=== PATIENT | female | born 1945 | race Caucasian/White ===

== ENCOUNTER → 2022-02-27 | Outpatient (CLI) | payer MEDICARE ==
--- NOTE | 2022-03-02 10:08 | MM ---
Reason for exam: screening (asymptomatic). Last mammogram was performed 1 year and 1 month ago. History: Patient is postmenopausal, has history of breast cancer at age 73, and is nulliparous. Family history of breast cancer in 2 sisters at age 50. Lumpectomy of the right breast, 2019. Radiation therapy of the right breast, 2019. Excisional biopsy of the left breast. Physical Findings: A clinical breast exam by your physician is recommended on an annual basis and results should be correlated with mammographic findings. MG 3D Screening Mammo W/Cad Bilateral CC, MLO, and XCCL view(s) were taken. Prior study comparison: January 13, 2021, mammogram, performed at [place]. January 05, 2020, mammogram, performed at [place]. The breast tissue is heterogeneously dense. This may lower the sensitivity of mammography. Stable benign calcifications. Focal asymmetry upper outer right breast is stable. No significant changes when compared with prior studies. ASSESSMENT: Benign, BI-RAD 2 RECOMMENDATION: Routine screening mammogram of both breasts in 1 year.
== END | disposition home or self-care (01) ==
LOC: RADMAMWWP 07:34
PROVIDERS: ATTEND Physician Assistant
DX: Z12.31 Encounter for screening mammogram for malignant neoplasm of breast (principal); Z78.0 Asymptomatic menopausal state; Z85.3 Personal history of malignant neoplasm of breast; Z80.3 Family history of malignant neoplasm of breast; Z92.3 Personal history of irradiation
CPT/HCPCS: 77063; 77067

== ENCOUNTER → 2023-03-08 | Outpatient (CLI) | payer MEDICARE ==
--- NOTE | 2023-03-09 17:33 | MM ---
Reason for Exam: Screening (asymptomatic). Last screening mammogram was performed 12 month(s) ago. Patient History: Menarche at age 13. Patient has no children. Right ovary removed at age 25. Postmenopausal. Breast cancer, age 73. Excisional Biopsy on the Left side. 2019, Lumpectomy on the Right side. 2019, Radiation Therapy on the right side. Sister had breast cancer, age 50. Sister had breast cancer, age 50. Prior Study Comparison: 01/05/2020 Screening Mammogram, [place]. 01/13/2021 Screening Mammogram, [place]. 02/27/2022 Bilateral Screening Mammogram, [facility]. Tissue Density: The breast tissue is heterogeneously dense. This may lower the sensitivity of mammography. Findings: Analyzed By CAD. Postsurgical and posttreatment changes right breast. The density associated with the patient's upper outer quadrant lumpectomy site is decreasing in size now. Unchanged grouped microcalcifications on the left. There is no suspicious group of microcalcifications or new suspicious mass in either breast. Overall Assessment: Benign, BI-RAD 2 Management: Screening Mammogram of both breasts in 1 year. 1. Patient should continue monthly self breast exams. 2. A clinical breast exam by your physician is recommended on an annual basis. 3. This exam should not preclude additional follow-up of suspicious palpable abnormalities. Electronically signed and approved by: Latha Gutierrez M.D. Radiologist
== END | disposition home or self-care (01) ==
LOC: RADMAMWWP 11:27
PROVIDERS: ATTEND Surgery
DX: Z12.31 Encounter for screening mammogram for malignant neoplasm of breast (principal); Z78.0 Asymptomatic menopausal state; Z80.3 Family history of malignant neoplasm of breast
CPT/HCPCS: 77063; 77067

== ENCOUNTER 2024-01-19 10:28 | Day surgery (SDC) | payer MEDICARE ==
[2024-01-17 14:53] VITALS: BMI 37.1
[~2024-01-19 10:28] MED LIST: LACTATED RINGERS 1,000 ML IV SCH; LIDOCAINE 1% (10MG/ML) FOR IV START INTRADERMA PRN; ONDANSETRON 4 MG/2 ML VIAL IVP PRN
[2024-01-19] MEDS: LACTATED RINGERS 1,000 ML IV ONE (10:48)
[2024-01-19 11:03] VITALS: RESP 16; TEMP 97.8
[2024-01-19] MEDS ORDERED: PROPOFOL 10 MG/ML 20 ML VIAL IV ONE (12:00)
--- NOTE | 2024-01-19 12:18 | P.PCN ---
Date of Procedure: 01/19/24 Procedure(s) Performed: BRIEF HISTORY: Patient is a 78-year-old pleasant male scheduled for an elective colonoscopy as a part of evaluation of long-standing history of Crohn's disease diagnosed in 2010 and since then maintained on Pentasa 1 g twice daily and remains in clinical remission PROCEDURE PERFORMED: Colonoscopy. PREOPERATIVE DIAGNOSIS: History of Crohn's colitis diagnosed in 2010. IV sedation per Anesthesia. PROCEDURE: After informed consent was obtained, the patient, was brought into [facility] endoscopy unit. IV sedation was administered by Anesthesia under continuous monitoring. Digital rectal examination was normal. Initially the Olympus CF-160 flexible video colonoscope was then inserted in the rectum, gradually advanced into the cecum without any difficulty. Careful examination was performed as the scope was gradually being withdrawn. Ileocecal valve and the appendiceal orifice were visualized and appeared normal. Prep was excellent. Mucosa of the cecum, ascending colon and transverse colon had patchy areas of erythema consistent with mild colitis. There was once a fissure ulceration noted on the ileocecal valve which was also biopsied. Rest of the mucosa of the descending colon, sigmoid colon, and rectum appeared normal. Retroflexion was performed in the rectum and no lesions were seen. The patient tolerated the procedure well. IMPRESSION: Mild patchy areas of erythema noted in the cecum, ascending colon and transverse colon and one superficial ulceration of ileocecal valve status post multiple biopsies Rest of the colon appeared normal Recommendations: Findings of this examination were discussed with the patient as well as her family. She was advised to follow up with the biopsy results..continue with Pentasa 1 g twice daily. Advised to follow up in the office in 3-4 months.
[2024-01-19 12:47] VITALS: PULSE 60
[2024-01-19 13:21] VITALS: BP 145/74
== END 2024-01-19 13:17 | disposition home or self-care (01) ==
LOC: ORWHC2ENDO 10:28
PROVIDERS: ATTEND Internal Medicine Gastroenterology
DX: K63.3 Ulcer of intestine (principal); I10 Essential (primary) hypertension; J45.909 Unspecified asthma, uncomplicated; Z79.899 Other long term (current) drug therapy; Z98.890 Other specified postprocedural states
CPT/HCPCS: 45380; J2704; 88305

== ENCOUNTER → 2024-03-09 | Outpatient (CLI) | payer MEDICARE ==
--- NOTE | 2024-03-12 20:44 | MM ---
Reason for Exam: Screening (asymptomatic). Last screening mammogram was performed 12 month(s) ago. Patient History: Menarche at age 13. Patient has no children. Right ovary removed at age 25. Postmenopausal. Breast cancer, right, age 73. Excisional Biopsy on the Left side. 2019, Lumpectomy on the Right side. 2019, Radiation Therapy on the right side. Sister had breast cancer, age 50. Sister had breast cancer, age 50. Prior Study Comparison: 01/13/2021 Screening Mammogram, [place]. 02/27/2022 Bilateral Screening Mammogram, [facility]. 03/08/2023 Bilateral MG 3D screening mammo w/cad, [facility]. Tissue Density: There are scattered areas of fibroglandular density. Findings: Analyzed By CAD. Postsurgical and posttreatment change right side. Unchanged grouped calcifications on the left. There is no suspicious group of microcalcifications or new suspicious mass in either breast. Overall Assessment: Benign, BI-RAD 2 Management: Screening Mammogram of both breasts in 1 year. . Patient should continue monthly self-breast exams. A clinical breast exam by your physician is recommended on an annual basis. This exam should not preclude additional follow-up of suspicious palpable abnormalities. Electronically signed and approved by: Latha Gutierrez M.D. Radiologist
== END | disposition home or self-care (01) ==
LOC: RADMAMWWP 07:01
PROVIDERS: ATTEND Surgery
DX: Z12.31 Encounter for screening mammogram for malignant neoplasm of breast (principal); Z78.0 Asymptomatic menopausal state; Z85.3 Personal history of malignant neoplasm of breast; Z80.3 Family history of malignant neoplasm of breast
CPT/HCPCS: 77063; 77067

== ENCOUNTER 2024-05-10 11:33 | Emergency (ER) | payer MEDICARE, OTHER ==
[2024-05-10 11:46] VITALS: RESP 18; TEMP 98
[2024-05-10] MEDS: SODIUM CHLORIDE 0.9% 1,000 ML IV STA (12:11)
--- NOTE | 2024-05-10 12:17 | ED ---
Nausea/Vomiting/Diarrhea HPI - General Chief complaint: Nausea/Vomiting/Diarrhea Stated complaint: Nausea Time Seen by Provider: 05/10/24 11:53 Source: patient, RN notes reviewed Mode of arrival: ambulatory Limitations: no limitations - History of Present Illness Initial comments: 79-year-old female with history of Crohn's presenting with diarrhea x 7 days. States the diarrhea is watery and she has been having about 10 episodes daily. States she had to wake up in the middle of the night 3 times for last night to use the bathroom. Denies blood in the stool or black tarry stools. She admits some nausea but denies vomiting, urinary symptoms, fevers, cough, or abdominal pain. She states she has had intermittent diarrhea occasionally with her Cr ohn's disease but has never had diarrhea last this long. She is able to tolerate orals well. Denies recent travel or suspicious foods. Denies recent antibiotic use. Has not been around livestock. - Related Data Home Medications Medication Instructions Recorded Confirmed Alendronate Sodium [Fosamax] 70 mg PO MO 01/17/24 01/19/24 Calcium Carbonate/Vitamin D3 1 tab PO DAILY 01/17/24 01/19/24 [Calcium 500 mg Chewable Tablet] L.acidoph,Paracasei, B.lactis 1 each PO DAILY 01/17/24 01/19/24 [Probiotic] Mesalamine [Pentasa] 500 mg PO TID 01/17/24 01/19/24 Mv-Mn/Om3/Dha/Epa/Fish/Lut/Josse 1 each PO DAILY 01/17/24 01/19/24 [Ocuvite Adult 50 Plus Softgel] Sertraline HCl [Zoloft] 50 mg PO HS 01/17/24 01/19/24 amLODIPine [Norvasc] 5 mg PO QAM 01/17/24 01/19/24 Previous Rx's Medication Instructions Recorded Azithromycin [Zithromax] 500 mg PO DAILY 5 Days #5 tab 05/10/24 Allergies Allergy/AdvReac Type Severity Reaction Status Date / Time azathioprine [From Imuran] Allergy pancreatiti Verified 05/10/24 11:46 s Review of Systems ROS Statement: Those systems with pertinent positive or pertinent negative responses have been documented in the HPI. ROS Other: All systems not noted in ROS Statement are negative. Past Medical History Past Medical History: Hypertension Additional Past Medical History / Comment(s): Chrohn's,rt breast CA 2022 w/ radiation tx/no chemo History of Any Multi-Drug Resistant Organisms: None Reported Past Surgical History: Tonsillectomy Additional Past Surgical History / Comment(s): colonoscopies,lumpectomy rt breast,rt ovary removy Past Anesthesia/Blood Transfusion Reactions: No Reported Reaction, Family History of Problems w/ Anesthesia Additional Past Anesthesia/Blood Transfusion Reaction / Comment(s): no hx blood transfusion. sister has PONV Smoking Status: Never smoker - Past Family History Mother Family Medical History: Cancer Additional Family Medical History / Comment(s): kidney CA Father Family Medical History: Cancer Additional Family Medical History / Comment(s): colon CA Sister(s) Family Medical History: Cancer Additional Family Medical History / Comment(s): breast CA General Exam Limitations: no limitations General appearance: alert, in no apparent distress Head exam: Present: atraumatic, normocephalic, normal inspection Eye exam: Present: normal appearance, PERRL, EOMI. Absent: scleral icterus, conjunctival injection, periorbital swelling ENT exam: Present: normal exam, mucous membranes moist Neck exam: Present: normal inspection. Absent: tenderness, meningismus, lymphadenopathy Respiratory exam: Present: normal lung sounds bilaterally. Absent: respiratory distress, wheezes, rales, rhonchi, stridor Cardiovascular Exam: Present: regular rate, normal rhythm, normal heart sounds. Absent: systolic murmur, diastolic murmur, rubs, gallop, clicks GI/Abdominal exam: Present: soft, normal bowel sounds. Absent: distended, tenderness, guarding, rebound, rigid Extremities exam: Present: normal inspection, full ROM, normal capillary refill. Absent: tenderness, pedal edema, joint swelling, calf tenderness Back exam: Present: normal inspection. Absent: CVA tenderness (R), CVA tenderness (L) Neurological exam: Present: alert, oriented X3, CN II-XII intact Psychiatric exam: Present: normal affect, normal mood Skin exam: Present: warm, dry, intact, normal color. Absent: rash Course Vital Signs 05/10/24 05/10/24 05/10/24 11:44 13:08 13:59 Temperature 98.0 F 98.0 F Pulse Rate 69 62 65 Respiratory 18 18 18 Rate Blood Pressure 125/77 132/58 123/62 O2 Sat by Pulse 96 95 96 Oximetry Medical Decision Making - Medical Decision Making Was pt. sent in by a medical professional or institution (, [facility], SCROLL SAW OPERATOR, urgent care, hospital, or penitentiary...) When possible be specific @ -[No] Did you speak to anyone other than the patient for history (EMS, parent, family, police, friend...)? What history was obtained from this source @ -[No] Did you review nursing and triage notes (agree or disagree)? Why? @ -[I reviewed and agree with nursing and triage notes] Were old charts reviewed (outside hosp., previous admission, EMS record, old EKG, old radiological studies, urgent care reports/EKG's, penitentiary records)? Report findings @ -[No old charts were reviewed] Differential Diagnosis (chest pain, altered mental status, abdominal pain women, abdominal pain men, vaginal bleeding, weakness, fever, dyspnea, syncope, headache, dizziness, GI bleed, back pain, seizure, CVA, palpatations, mental health, musculoskeletal)? @ -Infectious diarrhea, C. difficile, enterovirus, Giardia, inflammatory bowel disease, diverticulitis EKG interpreted by me (3pts min.). @ -None X-rays interpreted by me (1pt min.). @ -[None done] CT interpreted by me (1pt min.). @ -[None done] U/S interpreted by me (1pt. min.). @ -[None done] What testing was considered but not performed or refused? (CT, X-rays, U/S, labs)? Why? @ -Imaging not performed due to stable vitals, no abdominal tenderness to palpation, no alarm symptoms What meds were considered but not given or refused? Why? @ -[None] Did you discuss the management of the patient with other professionals (professionals i.e. [facility] [place], SCROLL SAW OPERATOR, lab, RT, psych nurse, social media strategist, lead php developer, te acher, staff command and control officer, case briefer)? Give summary @ -[No] Was smoking cessation discussed for >3mins.? @ -[No] Was critical care preformed (if so, how long)? @ -[No] Were there social determinants of health that impacted care today? How? (Homelessness, low income, unemployed, alcoholism, drug addiction, transportation, low edu. Level, literacy, decrease access to med. care, longterm, rehab)? @ -[No] Was there de-escalation of care discussed even if they declined (Discuss DNR or withdrawal of care, Hospice)? DNR status @ -[No] What co-morbidities impacted this encounter? (DM, HTN, Smoking, COPD, CAD, Cancer, CVA, ARF, Chemo, Hep., AIDS, mental health diagnosis, sleep apnea, morbid obesity)? @ -[None] Was patient admitted / discharged? Hospital course, mention meds given and route, prescriptions, significant lab abnormalities, going to OR and other pertinent info. @ -Patient was discharged. Patient was seen and evaluated for diarrhea x 1 week. Patient is in no acute distress, appears nontoxic. Patient is afebrile and nontachycardic. There is no tenderness to palpation of abdomen. No sign of severe dehydration. Patient is tolerating orals well. Denies recent travel, has not been around livestock, low suspicion for food poisoning. Patient was given 1 L of IV fluids. Lab work remarkable for CO2 of 17. BUN 28. White blood cell count is normal at 8.6. Anion gap is normal at 11. Patient has mild metabolic acidosis likely due to diarrhea. Due to patient having diarrhea for 7 days and more than 8 episodes of diarrhea in 24 hours, antibiotics are indicated at this time for likely infectious diarrhea. Discussed diagnosis of infectious diarrhea with patient. Supportive care discussed. Prescribed azithromycin to pharmacy. Advised to follow-up with PCP if diarrhea does not improve after antibiotic course. Strict return/alarm symptoms discussed with patient in detail and she shows understanding and agrees with plan. Case discussed with my attending Dr. Basilio. Patient discharged in stable condition. Undiagnosed new problem with uncertain prognosis? @ -[No] Drug Therapy requiring intensive monitoring for toxicity (Heparin, Nitro, Insulin, Cardizem)? @ -[No] Were any procedures done? @ -[No] Diagnosis/symptom? @ -Infectious diarrhea Acute, or Chronic, or Acute on Chronic? @ -Acute Uncomplicated (without systemic symptoms) or Complicated (systemic symptoms)? @ -Uncomplicated Side effects of treatment? @ -[No] Exacerbation, Progression, or Severe Exacerbation? @ -[No] Poses a threat to life or bodily function? How? (Chest pain, [place], [place], pneumonia, PE, COPD, DKA, ARF, appy, cholecystitis, CVA, Diverticulitis, Homicidal, Suicidal, threat to staff... and all critical care pts) @ -Low likelihood - Lab Data Result diagrams: 05/10/24 12:10 05/10/24 12:10 Lab Results 05/10/24 05/10/24 05/10/24 Range/Units 12:10 12:10 12:10 WBC 8.6 (3.8-10.6) k/uL RBC 4.61 (3.80-5.40) m/uL Hgb 13.1 (11.4-16.0) gm/dL Hct 41.5 (34.0-46.0) % MCV 90.0 (80.0-100.0) fL MCH 28.4 (25.0-35.0) pg MCHC 31.5 (31.0-37.0) g/dL RDW 13.3 (11.5-15.5) % Plt Count 199 (150-450) k/uL MPV 8.4 Neutrophils % 76 % Lymphocytes % 13 % Monocytes % 7 % Eosinophils % 1 % Basophils % 1 % Neutrophils # 6.5 (1.3-7.7) k/uL Lymphocytes # 1.1 (1.0-4.8) k/uL Monocytes # 0.6 (0-1.0) k/uL Eosinophils # 0.1 (0-0.7) k/uL Basophils # 0.0 (0-0.2) k/uL Sodium 139 (137-145) mmol/L Potassium 4.3 (3.5-5.1) mmol/L Chloride 111 H (98-107) mmol/L Carbon Dioxide 17 L (22-30) mmol/L Anion Gap 11 mmol/L BUN 28 H (7-17) mg/dL Creatinine 0.93 (0.52-1.04) mg/dL Est GFR (CKD-EPI)AfAm 68 (>60 ml/min/1.73 sqM) Est GFR (CKD-EPI)NonAf 59 (>60 ml/min/1.73 sqM) Glucose 94 (74-99) mg/dL Plasma Lactic Acid Jose 0.9 (0.7-2.0) mmol/L Calcium 9.2 (8.4-10.2) mg/dL Total Bilirubin 0.6 (0.2-1.3) mg/dL AST 25 (14-36) U/L ALT 17 (4-34) U/L Alkaline Phosphatase 65 (38-126) U/L Total Protein 7.6 (6.3-8.2) g/dL Albumin 4.5 (3.5-5.0) g/dL Lipase 236 (23-300) U/L Disposition Clinical Impression: Acute infectious diarrhea Disposition: HOME SELF-CARE Condition: Stable Instructions (If sedation given, give patient instructions): Acute Diarrhea (ED) Additional Instructions: Please take azithromycin as prescribed. Follow-up with PCP if diarrhea does not improve after full course of antibiotic. Please return to the Emergency Depart ment if symptoms worsen or any other concerns. Prescriptions: Azithromycin [Zithromax] 500 mg PO DAILY 5 Days #5 tab Is patient prescribed a controlled substance at d/c from ED?: No Referrals: Jim Mak DO [Primary Care Provider] - 1-2 days Time of Disposition: 13:42
[2024-05-10 12:53] LABS: Basophils % (A) 1 %; Eosinophils # (A) 0.1 k/uL (0-0.7); Eosinophils % (A) 1 %; HCT 41.5 % (34.0-46.0); HGB 13.1 gm/dL (11.4-16.0); Lymphocytes # (A) 1.1 k/uL (1.0-4.8); Lymphocytes % (A) 13 %; MCH 28.4 pg (25.0-35.0); MCHC 31.5 g/dL (31.0-37.0); Mean Platelet Volume 8.4; Monocytes # (A) 0.6 k/uL (0-1.0); Monocytes % (A) 7 %; Neutrophils # (A) 6.5 k/uL (1.3-7.7); Neutrophils % (A) 76 %; Platelet Count 199 k/uL (150-450); RBC 4.61 m/uL (3.80-5.40); RDW 13.3 % (11.5-15.5); WBC 8.6 k/uL (3.8-10.6)
[2024-05-10 13:08] LABS: ALT 17 U/L (4-34); AST 25 U/L (14-36); African American GFR (CKD) 68 (>60 ml/min/1.73 sqM); Albumin 4.5 g/dL (3.5-5.0); Alkaline Phosphatase 65 U/L (38-126); Anion Gap 11 mmol/L; Blood Urea Nitrogen 28 mg/dL (7-17); Calcium 9.2 mg/dL (8.4-10.2); Carbon Dioxide 17 mmol/L (22-30); Chloride 111 mmol/L (98-107); Glucose 94 mg/dL (74-99); Lipase 236 U/L (23-300); Non-African American GFR(CKD) 59 (>60 ml/min/1.73 sqM); Potassium 4.3 mmol/L (3.5-5.1); Sodium 139 mmol/L (137-145); Total Bilirubin 0.6 mg/dL (0.2-1.3); Total Protein 7.6 g/dL (6.3-8.2)
[2024-05-10 14:00] VITALS: BP 123/62; PULSE 65
== END 2024-05-10 13:59 | disposition home or self-care (01) ==
LOC: EC 11:33
DX: A09 Infectious gastroenteritis and colitis, unspecified (principal); Z88.8 Allergy status to other drugs, medicaments and biological substances
CPT/HCPCS: 36415; 80053; 83605; 83690; 85025; 96360; 99284

== ENCOUNTER → 2024-11-04 | Outpatient (CLI) | payer MEDICARE ==
[2024-11-04 12:59] LABS: Chol/HDL Ratio 3.19 Ratio; LDL Cholesterol,Calculated 114.9 mg/dL (0.0-131.0); VLDL Calculation 14.92 mg/dL (5.00-40.00)
== END | disposition home or self-care (01) ==
LOC: LABWHC1 11-03 10:38
PROVIDERS: ATTEND Family Medicine
DX: I10 Essential (primary) hypertension (principal)
CPT/HCPCS: 36415; 80061

== ENCOUNTER → 2025-02-26 | Outpatient (CLI) | payer MEDICARE ==
[2025-02-26 15:34] LABS: Basophils # (A) 0.07 X 10*3/uL (0.00-0.10); HCT 37.3 % (37.2-46.3); HGB 11.7 g/dL (12.0-15.0); Lymphocytes # (A) 1.54 X 10*3/uL (0.90-5.00); Lymphocytes % (A) 23.1 %; MCH 28.1 pg (27.0-32.0); MCHC 31.4 g/dL (32.0-37.0); MCV 89.4 FL (80.0-97.0); Mean Platelet Volume 10.8 FL (9.5-12.2); Monocytes # (A) 0.54 X 10*3/uL (0.20-1.00); Monocytes % (A) 8.1 %; NRBC Per 100 WBC 0 X 10*3/uL (0.00-0.01); Neutrophils # (A) 4.32 X 10*3/uL (1.80-7.70); Neutrophils % (A) 64.7 %; Platelet Count 193 X 10*3/uL (140-440); RBC 4.17 X 10*6/uL (4.10-5.20); WBC 6.68 X 10*3/uL (4.50-10.00)
[2025-02-26 15:53] LABS: ALT 26 U/L (8-44); AST 23 U/L (13-35); Albumin 4.1 g/dL (3.8-4.9); Albumin/Globulin Ratio 1.52 Ratio (1.60-3.17); Alkaline Phosphatase 71 U/L (41-126); Blood Urea Nitrogen 22.5 mg/dL (9.0-27.0); Calcium 9.6 mg/dL (8.7-10.3); Carbon Dioxide 27.4 mmol/L (21.6-31.8); Chloride 105 mmol/L (96-109); Globulin 2.7 g/dL (1.6-3.3); Glucose 95 mg/dL (70-110); Potassium 4.6 mmol/L (3.5-5.5); Sodium 142 mmol/L (135-145); Total Bilirubin 0.3 mg/dL (0.3-1.2); Total Protein 6.8 g/dL (6.2-8.2)
== END | disposition home or self-care (01) ==
LOC: LABWHC1 08:42
PROVIDERS: ATTEND Nurse Practitioner Family
DX: K50.10 Crohn's disease of large intestine without complications (principal)
CPT/HCPCS: 36415; 80053; 85025

== ENCOUNTER → 2025-03-20 | Outpatient (CLI) | payer MEDICARE ==
--- NOTE | 2025-03-20 11:12 | MM ---
Reason for Exam: Screening (asymptomatic). Last mammogram was performed 1 year(s) and 1 month(s) ago. Patient History: Menarche at age 13. Patient has no children. Right ovary removed at age 25. Postmenopausal. Breast cancer, right, age 73. Excisional Biopsy on the Left side. 2019, Lumpectomy on the Right side. 2019, Radiation Therapy on the right side. Sister had breast cancer, age 50. Sister had breast cancer, age 50. Prior Study Comparison: 02/27/2022 Bilateral Screening Mammogram, [facility]. 03/08/2023 Bilateral MG 3D screening mammo w/cad, [facility]. 03/09/2024 Bilateral MG 3D screening mammo w/cad, [facility]. Tissue Density: There are scattered areas of fibroglandular density. Findings: Analyzed By CAD. Right breast biopsy clip. Right breast: There is no suspicious group of microcalcifications or new suspicious mass. Benign-appearing calcifications right breast. Left breast: There is no suspicious group of microcalcifications or new suspicious mass. Overall Assessment: Benign, BI-RAD 2 Management: Screening Mammogram of both breasts in [address] [facility] will attempt to contact patient to return for supplemental views and ultrasound if indicated. Patient should continue monthly self-breast exams. A clinical breast exam by your physician is recommended on an annual basis. This exam should not preclude additional follow-up of suspicious palpable abnormalities. Note on Tiffanie scores and lifetime risk: 1. A Tiffanie score greater than 3% is considered moderate risk. If this is the case, consider specialist referral to assess eligibility for a risk reducing agent. 2. If overall lifetime risk for the development of breast cancer is 20% or higher, the patient may qualify for future screening with alternating mammogram and breast MRI. [facility], , 03/20/2025 11:10 AM. Electronically signed and approved by: Reji Lebron DO
== END | disposition home or self-care (01) ==
LOC: RADMAMWWP 09:49
PROVIDERS: ATTEND Surgery
DX: Z12.31 Encounter for screening mammogram for malignant neoplasm of breast (principal); R92.323 Mammographic fibroglandular density, bilateral breasts; Z85.3 Personal history of malignant neoplasm of breast; Z80.3 Family history of malignant neoplasm of breast; Z78.0 Asymptomatic menopausal state
CPT/HCPCS: 77063; 77067

== ENCOUNTER → 2025-05-09 | Outpatient (CLI) | payer MEDICARE ==
--- NOTE | 2025-05-10 07:52 | XR ---
EXAMINATION TYPE: XR chest 2V DATE OF EXAM: 05/09/2025 10:18 AM COMPARISON: None. CLINICAL INDICATION: Female, 80 years old with history of R06.02 SHORTNESS OF BREATH, TECHNIQUE: XR chest 2V view(s) obtained. FINDINGS: The heart size is normal. The pulmonary vasculature is normal. The lungs are clear. IMPRESSION: 1. No acute pulmonary process. [facility], , 05/10/2025 7:50 AM
== END | disposition home or self-care (01) ==
LOC: RADXRMAIN 10:09
PROVIDERS: ATTEND Family Medicine
DX: R06.02 Shortness of breath (principal)
CPT/HCPCS: 71046